=== PATIENT | male | born 1995 | race Two or more races ===

== ENCOUNTER 2023-10-07 14:19 | Emergency (ER) | payer SELFPAY ==
[2023-10-07 14:26] VITALS: BP 138/87; PULSE 70; RESP 18; TEMP 98; BMI 25.7
[2023-10-07] MEDS ORDERED: ALBUTEROL SO4 2.5/IPRATROPIUM 0.5 INH SOL 3 ML VIAL.NEB. NEB ONE (15:01)
[2023-10-07] MEDS: ALBUTEROL SO4 2.5/IPRATROPIUM 0.5 INH SOL 3 ML VIAL.NEB. NEB ONE (15:08)
[2023-10-07] MEDS ORDERED: ONDANSETRON 4 MG/2 ML VIAL ONE (15:22)
[2023-10-07] MEDS ORDERED: ACETAMINOPHEN 325 MG TABLET (FP) ONE (15:32)
[2023-10-07] MEDS: SODIUM CHLORIDE 0.9% 1000 ML INFUS.BAG IV ONE (15:38)
[2023-10-07] MEDS: ONDANSETRON 4 MG/2 ML VIAL IVPUSH ONE (15:38)
[2023-10-07] MEDS: ACETAMINOPHEN 325 MG TABLET (FP) PO ONE (15:39)
[2023-10-07 15:56] LABS: BASO % 0.3 % (0-2.0); EOS % 0.3 % (0-4.5); HEMATOCRIT 44.2 % (35.4-49); HEMOGLOBIN 15.2 GM/dL (11.7-16.9); MCH 29.6 pg (25.7-33.7); MCHC 34.4 g/dl (32.0-35.9); MEAN CELL VOLUME 86.3 fl (80-96); MEAN PLT VOLUME 9.3 fl (7.5-11.1); MONO % 6.8 % (3.8-10.2); NEUT % 73.6 % (42.8-82.8); PLATELET COUNT 245 10^3/uL (134-434); RBC 5.13 M/mm3 (4.00-5.60); RDW 13.2 % (11.9-15.9); WHITE BLOOD COUNT 10.3 K/mm3 (4.0-10.0)
[2023-10-07 16:14] LABS: POTASSIUM 3.9 mmol/L (3.5-5.1)
[2023-10-07 16:16] LABS: CALCIUM 9.4 mg/dL (8.5-10.1)
[2023-10-07 16:17] LABS: ALBUMIN 4.2 g/dl (3.4-5.0); BLOOD UREA NITROGEN 11.4 mg/dL (7-18)
[2023-10-07 16:20] LABS: CREATININE 0.8 mg/dL (0.55-1.3)
[2023-10-07 16:21] LABS: BILIRUBIN,TOTAL 0.9 mg/dL (0.2-1); TOT PROT 8.4 g/dl (6.4-8.2)
== END 2023-10-07 18:05 | disposition home or self-care (01) ==
LOC: JERFT 14:19
PROC: 3E033GC Introduction of Other Therapeutic Substance into Peripheral Vein, Percutaneous Approach (ICD-10-PCS; principal; 2023-10-07)
PROC: 3E0F7GC Introduction of Other Therapeutic Substance into Respiratory Tract, Via Natural or Artificial Opening (ICD-10-PCS; 2023-10-07)
DX: K52.9 Noninfective gastroenteritis and colitis, unspecified (principal); R05.9 Cough, unspecified; R11.2 Nausea with vomiting, unspecified; R19.7 Diarrhea, unspecified; R10.13 Epigastric pain; Z20.822 Contact with and (suspected) exposure to COVID-19
CPT/HCPCS: 0241U-QW; 36415; 71046-TC-FY; 80053; 83690; 85025; 99285-25